=== PATIENT | male | born 1955 | race Two or more races ===

== ENCOUNTER 2021-07-28 14:31 | Emergency (ER) | payer OTHER ==
[~2021-07-28] VITALS: Ht 172.7 cm; Wt 79.4 kg
[2021-07-28] MEDS ORDERED: LIDODERM1 EACH TOP (17:45)
[2021-07-28] MEDS ORDERED: IBU600 MG PO (17:45)
[2021-07-28] MEDS ORDERED: OXYCODONE HCL5 MG PO (17:45)
[2021-07-28] MEDS ORDERED: TYLENOL EXTRA500 MG PO (17:45)
== END 2021-07-28 20:00 | disposition home or self-care (01) ==
LOC: ED 14:31 → EDBD 14:33 → ED 20:00
DX: S22.43XA Multiple fractures of ribs, bilateral, initial encounter for closed fracture (principal); S70.11XA Contusion of right thigh, initial encounter; S00.81XA Abrasion of other part of head, initial encounter; E11.9 Type 2 diabetes mellitus without complications; Z85.038 Personal history of other malignant neoplasm of large intestine; I25.10 Atherosclerotic heart disease of native coronary artery without angina pectoris; V53.6XXA Passenger in pick-up truck or van injured in collision with car, pick-up truck or van in traffic accident, initial encounter
CPT/HCPCS: 36415; 70450; 71045; 71260; 73552; 74177; 80053; 85025; 86850; 86900; 86901; 90715; 96375; 99284-25; J2270; J2405